=== PATIENT | female | born 1970 | race Caucasian/White ===

== ENCOUNTER 2020-03-28 11:59 | Inpatient (IN) | payer OTHER ==
--- OUTSIDE RECORDS SUMMARY | 2020-03-28 12:01 | XMS REPORT | Continuity of Care Document ---
:1970 Author Organization [facility] t Address [address] [place] [address] Care Team Providers Name Role Phone Unavailable Unavailable Unavailable Payers Payer Name Policy Type Policy Number Effective Date Expiration Date S ource Problems This patient has no known problems. Allergies, Adverse Reactions, Alerts Allergy Allergy Status Severity Reaction(s) Onset Inactive Treating Comm ents Source Name Type Date Date Clinician No Known DA Active U [facility] [place] No Known DA Active U 0 [facility] Medications This patient has no known medications. Procedures This patient has no known procedures. Results Test Description Test Time Test Comments Results Result [facility] e Comments UTERUS,OTHER THAN 2018-10-16 PROLAPSE/EVERETT 13:31:00 ----RUN DATE: 10/16/18 [facility] PAGE 1 RUN TIME: 1713 Specimen Inquiry RUN USER: INTERFACE ----PATIENT: KATT ARMSTRONG LOC: MAHIN #: [id number] AGE/SX: 47/F ROOM: [facility] RE10/09/18REG DR: Vee Campa MD : 70 BED: A DIS: 10/10/18 STATUS: DIS [place] TLOC: ---- SPEC #: [id number] RECD: 10/09/18 STATUS: MANOLO TOBI #: [id number] ANDREEA: 10/09/18- SUBM DR: Vee Campa MD ENTERED: 10/10/18 SP TYPE: UTERUSOTH [facility] DR: ORDERED: GROSS ONLY, LEVEL V SURGICA/2 CODES: [id number] - UTERUS, NOS [id number] - PELVIC GENITAL PROCEDURES: GROSS ONLY (Incomplete) LEVEL V SURGICA (Incomplete) TISSUES: UTERUS, NOS - UTERUS, CERVIX AND BILATERAL FALLOPIAN TUBES PELVIC GENITAL STRUCTURES, NOS - RIGHT PELVIC SIDEWALL INTRAUTERINE DEVICE - IUD CLINICAL HISTORY 47 year old, menometrorrhagia (kr) FINAL DIAGNOSIS Designated "intrauterine device", removal: - intrauterine device identified (gross identification only) Designated "right pelvic sidewall endometriosis", biopsy: - connective tissue with fibrosis Uterus, cervix, bilateral fallopian tubes, hysterectomy and bilateral salpingectomy: - cervix - mild chronic inflammation - endometrium - benign - myometrium - leiomyomas, adenomyosis, adenomyomas - uterine serosa - no pathologic alterations - bilateral fallopian tubes - no pathologic alterations (paratubal cysts identified on the left side) CPT code(s): 31088, 11473, 84790 pkg/wpd 10/16/18 GROSS DESCRIPTION ANATOMIC SOURCE OF TISSUE (per Requisition): 1. Intrauterine device 2. Right pelvic sidewall endometriosis 3. Uterus, cervix, bilateral fallopian tubes CONTINUED ON NEXT PAGE ----RUN DATE: 10/16/18 [facility] PAGE 2 RUN TIME: 1713 Specimen Inquiry RUN USER: INTERFACE ----SPEC #: [id number] PATIENT: KATT ARMSTRONG #[id number] (Continued) GROSS DESCRIPTION (Continued) Each specimen is labeled with the patient's name and medical record number. Specimen #1 is designated "intrauterine device" and consists of a 3.5 x 3.4 x 0.4 cm white, plastic T-shaped device, which is consistent with an intrauterine device. No sections are submitted. Gross diagnosis only. Specimen #2 is designated "right pelvic sidewall endometriosis" and consists of a 1.0 x 0.7 x 0.2 cm subramanian-yellow, cauterized, fibrofatty soft tissue. The cut surfaces display focal areas of hemorrhage, submitted in its entirety as A1. Specimen #3 is designated "uterus, cervix, bilateral fallopian tubes" and consists of a 405 gm, 11.0 x 11.0 x 9.0 cm intact uterus with an attached cervix and fimbriated fallopian tubes (right 9.5 cm in length and left 8.5 cm in length). The uterine serosa is subramanian-pink, hyperemic and nodular. The 5.2 cm ectocervix displays a central 1.2 cm slit-like os. The endometrium is subramanian-red and hemorrhagic with a thickness measuring up to 0.2 cm. The myometrium is slightly trabeculated with a wall thickness measuring up to 4.5 cm. There are multiple well-circumscribed nodules, 0.8 to 5.0 cm. The cut surfaces are subramanian and whorled. There are no areas of hemorrhage or necrosis. The fallopian tubes are pink-purple and hyperemic. The lumens are pinpoint. The cut surfaces of the right fallopian tube wall is subramanian, firm, and thickened. Section code: B1 - cervix, B2 - anterior endomyometrium, B3 - posterior endomyometrium, B4 - nodules, B5 - payroll representative sections of large nodule, B6 - additional payroll representative sections of large nodule and payroll representative sections of right fallopian tube, B7 - additional nodule and payroll representative sections of left fallopian tube. marisol/ankit 10/10/18 @ 1000 MICROSCOPIC DESCRIPTION Specimen #1 consists of an intrauterine device which is for gross identification only. Specimen #2 consists of connective tissue with fibrosis. Specimen #3 - the cervix has a mild infiltrate of small lymphocytes and plasma cells. The endometrium is composed of haphazard tubular glands with virtually no nuclear stratification or mitotic activity. Some of the glands are cystically dilated. The stroma is attenuated. The myometrium contains foci of adenomyosis, adenomyomas, and leiomyomas without atypia. The uterine serosa has focal fibrous adhesions. The bilateral fallopian tubes have intact architecture and are lined by serous epithelium without cytologic atypia. Paratubal cysts are identified on the left side. ivanna/mitchell 10/16/18 CONTINUED ON NEXT PAGE ----RUN DATE: 10/16/18 [facility] PAGE 3 RUN TIME: 2640 Specimen Inquiry RUN USER: INTERFACE ----SPEC #: [id number] PATIENT: PATTIKATT #[id number] (Continued) ---- Signed Jammie Puri 10/16/18 1331 ---- END OF REPORT HGB HCT 2018-10-10 05:43:00 Test Item Value Reference Range Interpretation Comme nts HEMOGLOBIN (test code = HGB) 12.4 g/dL 10.7-13.9 N HEMATOCRIT (test code = HCT) 36.8 % 32.1-42.1 N CHEMISTRY 7 [id number] 14:29:00 Test Item Value Reference Range Interpretation Comments SODIUM (test code = NA) 137 mEq/L 135-145 N POTASSIUM (test code = K) 4.0 mEq/L 3.5-5.0 N CHLORIDE (test code = CL) 100 mEq/L 100-115 N CARBON DIOXIDE (test code = CO2) 31 mEq/L 22-31 N ANION GAP (test code = GAP) 9.70 10-20 L GLUCOSE (test code = GLU) 91 mg/dL 65-110 N BLOOD UREA NITROGEN (test code = 9 mg/dL 7-18 N BUN) GLOMERULAR FILTRATION RATE (test 90 ml/min >60 N code = GFR) CREATININE (test code = CREAT) 0.7 mg/dL 0.5-1.0 N CALCIUM (test code = CA) 9.7 mg/dL 8.4-10.2 N AG HEPATITIS B [id number] 18:08:00 Test Item Value Reference Range Interpretation Comments AG HEPATITIS B SURFACE (test code NONREACTIVE NONREACTIVE = HBSAG) IS CONSENT FORM SIGNED FOR HIV TESTING? YAB HEPATITIS C [id number] 18:08:00 Test Item Value Reference Range Interpretation Comments AB HEPATITIS C (test code = NONREACTIVE NONREACTIVE HCVAB) SIGNAL TO CUTOFF (test code = 0.03 <0.80 N CUTOFF) IS CONSENT FORM SIGNED FOR HIV TESTING? YAB HIV 1 18:08:00 Test Item Value Reference Range Interpretation Comments AB HIV 1 2 (test NONREACTIVE NONREACTIVE Done by [facility] code = [id number]) 4th Gen HIV Ag/Ab Combo Screen IS CONSENT FORM SIGNED FOR HIV TESTING? YURINALYSIS [id number] 16:49:00 Test Item Value Reference Range Interpretation Comments UA COLOR (test code = COLU) YELLOW YELLOW UA APPEARANCE (test code = CLEAR CLEAR APPU) UA GLUCOSE DIPSTICK (test code NEGATIVE NEG = DGLUU) UA BILIRUBIN DIPSTICK (test NEGATIVE NEG code = BILU) UA KETONE DIPSTICK (test code NEGATIVE NEG = KETU) UA SPECIFIC GRAVITY (test code 1.016 1.001-1.035 N = SGU) UA BLOOD DIPSTICK (test code = 1+ NEG A CARLOS) UA PH DIPSTICK (test code = 6.0 5-9 HANNAH) UA PROTEIN DIPSTICK (test code NEGATIVE NEG = PROU) UA UROBILINIOGEN DIPSTICK NEGATIVE mg/dL NEG (test code = URO) UA NITRITE DIPSTICK (test code NEG NEG = KIERSTEN) UA LEUKOCYTE ESTERASE DIPSTICK TRACE NEG A (test code = LEUU) UA WBC (test code = WBCU) 0-2 #/hpf NONE SEEN UA RBC (test code = RBCU) 3-5 #/hpf NONE SEEN A UA EPITHELIAL CELLS (test code RARE #/HPF RARE-FEW = EPIU) UA BACTERIA (test code = BACU) NEGATIVE /HPF RARE-FEW UA MUCUS (test code = MUCU) RARE NONE SEEN URINE SAMPLE: CLEAN CATCHHCG SERUM [id number] 16:46:00 Test Item Value Reference Range Interpretation Comments HCG SERUM QUAL (test code = HCGQL) NEGATIVE CBC W/AUTO [id number] 16:26:00 Test Item Value Reference Range Interpretation Comments WHITE BLOOD CELL (test code = WBC) 7.8 K/mm3 6.6-12.1 N RED BLOOD CELL (test code = RBC) 4.76 M/mm3 3.45-5.01 N HEMOGLOBIN (test code = HGB) 14.2 g/dL 10.7-13.9 H HEMATOCRIT (test code = HCT) 41.1 % 32.1-42.1 N MEAN CELL VOLUME (test code = MCV) 86 fL 84.1-94.8 N MEAN CELL HGB (test code = MCH) 29.8 pg 27-35 N MEAN CELL HGB CONCETRATION (test 34.5 gm/dL 32.2-34.1 H code = MCHC) RED CELL DISTRIBUTION WIDTH (test 12.0 % 12.4-16.5 L code = RDW) PLATELET COUNT (test code = PLT) 313 K/mm3 133-385 N IMMATURE PLATELET FRACTION (test 0.0 % 0.0-10.8 N code = IPF) MEAN PLATELET VOLUME (test code = 10.7 fl 9.1-12.7 N MPV) NEUTROPHIL % (test code = NT%) 46.9 % 56.5-79.4 L LYMPHOCYTE % (test code = LY%) 38.9 % 14.3-34.3 H MONOCYTE % (test code = MO%) 7.9 % 5.1-10.4 N EOSINOPHIL % (test code = EO%) 5.2 % 0.1-3.0 H BASOPHIL % (test code = BA%) 0.8 % 0.1-1.0 N NEUTROPHIL # (test code = NT#) 3.7 K/mm3 LYMPHOCYTE # (test code = LY#) 3.0 K/mm3 MONOCYTE # (test code = MO#) 0.6 K/mm3 EOSINOPHIL # (test code = EO#) 0.41 K/mm3 BASOPHIL # (test code = BA#) 0.1 K/mm3 RBC MORPHOLOGY REQUIRED (test code NORMAL NORMAL = RBCM) PLATELET MORPHOLOGY REQUIRED (test NORMAL NORMAL code = PLTMR)
[2020-03-28] MEDS ORDERED: NA CHLORIDE 0.9% 500 ML ONE (12:40)
[2020-03-28] MEDS ORDERED: ONDANSETRON 4 MG/2 ML VIAL ONE (12:40)
[2020-03-28 12:49] LABS: Absolute Lymphocytes (CBC) 1.1 K/uL (0.7-4.9); Basophils % 0.5 % (0-1.3); Hematocrit 39.4 % (36.0-45.0); MPV 9.5 fL (7.6-11.3); RBC Red Blood Cell Count 4.53 M/uL (3.86-4.86)
[2020-03-28 13:01] LABS: Albumin 3.6 g/dL (3.4-5.0); Bilirubin Direct 0.3 mg/dL (0-0.2); Bilirubin Total 1.2 mg/dL (0.2-1.0); Potassium 3.6 mmol/L (3.5-5.1); Protein, Total 7.9 g/dL (6.4-8.2)
[2020-03-28 13:17] LABS: Blood Morphology Comment NOT SEEN (NOT SEEN); Platelet Estimate ADEQ; White Blood Cell Scan OK (OK)
[2020-03-28] MEDS ORDERED: DERMABOND SKIN ADHESIVE TOP ONE (13:29)
[2020-03-28] MEDS ORDERED: MEPERIDINE HCL 50 MG/ML ONE (14:27)
--- NOTE | 2020-03-28 15:05 | RAD REPORT ---
EXAM DESCRIPTION: CT - Abdomen Pelvis W Contrast - 03/28/2020 2:29 pm CLINICAL HISTORY: eval for obstruction COMPARISON: CTSTONE PROTOCOL dated 03/18/2014; CTSTONE PROTOCOL dated 10/15/2012No comparisons TECHNIQUE: Biphasic, helical CT imaging of the abdomen and pelvis was performed following 100 ml non -ionic IV contrast. Oral contrast was given. All CT scans are performed using dose optimization technique as appropriate and may include automated exposure control or mA/KV adjustment according to patient size. FINDINGS: No suspicious findings in the lung bases. The liver, spleen, and pancreas show no suspicious findings. Gallbladder and biliary tree are also wi thout suspicious finding. Liver demonstrates mild diffuse fatty infiltration. Symmetric renal function is seen with no hydronephrosis or suspicious renal mass. No pyelonephritis o r acute parenchymal process. No bladder abnormalities. No adrenal abnormalities. No stomach or small bowel abnormality. From cecum through descending colon no significant finding not ed. A 10 centimeter long segment of sigmoid colon shows circumferential wall thickening. There is str anding and edema in the adjacent fat. Several small extraluminal free air collections are present adj acent to the colon. No pneumatosis. No abscess or drainable fluid collection. No hernia, mass or bu lky lymphadenopathy. Uterus is absent. No ovarian abnormality. No suspicious bony findings. IMPRESSION: Acute sigmoid diverticulitis with contained perforation. There are several small extralu taylor air collections adjacent to the involved colon. No abscess and no distant free air.
--- NOTE | 2020-03-28 15:32 | EDPHYS ---
Physician Documentation [facility] Name: Melissa Roque Age: 49 yrs Sex: Female : 1970 Arrival Date: 03/28/2020 Time: 12:02 Bed 23 Private MD: ED Physician Cliff Thomas HPI: 03/28 12:31 This 49 yrs old Female presents to ER via Ambulatory with complaints of rn Abdominal Pain. 12:31 The patient presents with abdominal pain that is diffuse. Onset: The symptoms/episode rn began/occurred 2 day(s) ago. The symptoms do not radiate. Associated signs and symptoms: Pertinent positives: constipation, Pertinent negatives: nausea and vomiting, blood in stools, diarrhea, fever. The symptoms are described as crampy. Modifying factors: The symptoms are alleviated by nothing, the symptoms are aggravated by food. Severity of pain: At its worst the pain was moderate in the emergency department the pain is unchanged. The patient has not experienced similar symptoms in the past. 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 - Social history:: Smoking status: Patient denies any tobacco usage or history of. - Family history:: not pertinent. - Hospitalizations: : No recent hospitalization is reported. ROS: 12:31 Constitutional: Negative for fever, chills, and weight loss, Eyes: Negative for injury, rn pain, redness, and discharge, Neck: Negative for injury, pain, and swelling, Cardiovascular: Negative for chest pain, palpitations, and edema, Respiratory: Negative for shortness of breath, cough, wheezing, and pleuritic chest pain, Abdomen/GI: + abd pain and constipation, + abd bloating Back: Negative for injury and pain, : Negative for injury, bleeding, discharge, and swelling, MS/Extremity: Negative for injury and deformity, Skin: Negative for injury, rash, and discoloration, Neuro: Negative for headache, weakness, numbness, tingling, and seizure. Exam: 12:31 Constitutional: This is a well developed, well nourished patient who is awake, alert, rn appears uncomfortable Head/Face: Normocephalic, atraumatic. Cardiovascular: Regular rate and rhythm. No pulse deficits. Respiratory: No increased work of breathing, no retractions or nasal flaring. Abdomen/GI: soft, Mild tenderness in LLQ and suprapubic regions. Skin: Warm, dry MS/ Extremity: Pulses equal, no cyanosis. Neuro: Awake and alert, GCS 15 Vital Signs: 12:10 BP 121 / 82; Pulse 86; Resp 19; Temp 98.5; Pulse Ox 95% ; Weight 97.98 kg; Height 5 ft. jl7 7 in. (170.18 cm); Pain 6/10; 13:15 BP 107 / 72; Pulse 73; Resp 16; Pulse Ox 99% on R/A; zb 14:15 BP 115 / 72; Pulse 83; Resp 16; Pulse Ox 95% on R/A; zb 15:00 BP 128 / 66; Pulse 73; Resp 16; Pulse Ox 97% on R/A; zb 16:00 BP 116 / 71; Pulse 60; Resp 16; Pulse Ox 97% on R/A; zb 17:00 BP 109 / 71; Pulse 83; Resp 14; Pulse Ox 95% on R/A; zb 18:01 BP 191 / 100; Pulse 81; Resp 20; Pulse Ox 97% on R/A; dh4 19:00 BP 105 / 50; Pulse 92; Resp 20; Temp 101.5; Pulse Ox 99% on R/A; zb 20:00 Temp 99.1; zb 12:10 Body Mass Index 33.83 (97.98 kg, 170.18 cm) [facility] MDM: 12:14 Patient medically screened. rn 15:27 Differential diagnosis: bowel obstruction, diverticulitis, non-specific abd pain, rn perforation, fecal impaction. Data reviewed: vital signs, nurses notes, lab test result(s), radiologic studies, CT scan, and as a result, I will admit patient. Counseling: I had a detailed discussion with the patient and/or guardian regarding: the historical points, exam findings, and any diagnostic results supporting the discharge/admit diagnosis, lab results, radiology results, the need for further work-up and treatment in the hospital. Admission orders: after a detailed discussion of the patient's condition and case, the admit orders are written by me. ED course: Pt with contained perforation 2/2 diverticulitis, consulted Dr. Sheth, recommends admission to hospitalist service with IV abx, NPO, fluids. . 03/28 12:21 Order name: Basic Metabolic Panel; Complete Time: 13:04 rn 03/28 12:21 Order name: CBC with Diff; Complete Time: 13:59 rn 03/28 12:21 Order name: Hepatic Function; Complete Time: 13:04 rn 03/28 12:21 Order name: Lipase; Complete Time: 13:04 rn 03/28 13:17 Order name: CBC Smear Scan; Complete Time: 13:59 EDMS 03/28 15:35 Order name: COVID-19 rn 03/28 12:21 Order name: CT Abd/Pelvis - PO and IV Contrast; Complete Time: 15:13 rn 03/28 13:59 Order name: US Abdomen Limited; Complete Time: 15:48 rn 03/28 19:35 Order name: SARS-COV-2 RT PCR EDMS 03/28 22:25 Order name: Procalcitonin EDMS 03/28 12:21 Order name: IV Saline Lock; Complete Time: 12:34 rn 03/28 12:21 Order name: Labs collected and sent; Complete Time: 12:34 rn Administered Medications: 12:34 Drug: Zofran (Ondansetron) 4 mg Route: IVP; Site: right antecubital; zb 12:50 Follow up: Response: No adverse reaction zb 12:34 Drug: NS 0.9% 500 ml Route: IV; Rate: bolus; Site: right antecubital; zb 13:45 Follow up: Response: No adverse reaction; IV Status: Completed infusion; IV Intake: zb 500ml 14:15 Drug: Demerol 50 mg Route: IVP; Site: right antecubital; zb 14:20 Follow up: Response: No adverse reaction; Pain is decreased zb 15:48 Drug: Zosyn 3.375 grams Route: IVPB; Infused Over: 60 mins; Site: right antecubital; jl7 16:45 Follow up: Response: No adverse reaction; IV Status: Completed infusion; IV Intake: zb 100ml 15:59 Drug: Demerol 25 mg Route: IVP; Site: right antecubital; zb 16:10 Follow up: Response: No adverse reaction; RASS: Alert and Calm (0) zb 16:31 Follow up: Response: No adverse reaction; Pain is decreased zb 19:52 Not Given (Patient Refused): Tylenol Suppository 650 mg GA once zb Disposition: 03/28/20 15:32 Hospitalization ordered by Kd Bryant for Inpatient Admission. Preliminary diagnosis is Acute diverticulitis of large intestine with perforation, without abscess. - Bed requested for [facility] ER HOLD. - Status is Inpatient Admission. lp1 - Condition is Stable. - Problem is new. - Symptoms have improved. Signatures: Dispatcher [employer] EDMS Cliff Thomas MD MD rn Pena, Laura, RN RN lp1 Steve Cosme PA PA cp Garcia, Cindy, RN RN Deanna Gaona RN RN jl7 Melany Gold RN RN zb Corrections: (The following items were deleted from the chart) 12:36 12:31 Constitutional: This is a well developed, well nourished patient who is awake, rn alert, appears uncomfortable Head/Face: Normocephalic, atraumatic. Cardiovascular: Regular rate and rhythm. No pulse deficits. Respiratory: No increased work of breathing, no retractions or nasal flaring. Abdomen/GI: soft, Mild tenderness in LLQ and suprapubic regions. Skin: Warm, dry MS/ Extremity: Pulses equal, no cyanosis. Neuro: Awake and alert, GCS 15 rn 22:02 15:32 Hospitalization Ordered by Kd Bryant DO for Inpatient Admission. Preliminary cg diagnosis is Acute diverticulitis of large intestine with perforation, without abscess. Bed requested for Telemetry/MedSurg (Inpatient). Status is Inpatient Admission. Condition is Stable. Problem is new. Symptoms have improved. rn 03/29 02:39 03/28 22:02 03/28/2020 15:32 Hospitalization Ordered by Kd Bryant DO for Inpatient lp1 Admission. Preliminary diagnosis is Acute diverticulitis of large intestine with perforation, without abscess. Bed requested for [facility] ER HOLD. Status is Inpatient Admission. Condition is Stable. Problem is new. Symptoms have improved. cg 03/29 02:39 02:39 03/28/2020 15:32 Hospitalization Ordered by Kd Bryant DO for Inpatient lp1 Admission. Preliminary diagnosis is Acute diverticulitis of large intestine with perforation, without abscess. Bed requested for [facility] ER HOLD. Status is Inpatient Admission. Condition is Stable. Problem is new. Symptoms have improved. lp1
--- NOTE | 2020-03-28 15:32 | ER ---
Nurse's Notes [facility] Name: Melissa Roque Age: 49 yrs Sex: Female : 1970 Arrival Date: 03/28/2020 Time: 12:02 Bed 23 Private MD: Diagnosis: Acute diverticulitis of large intestine with perforation, without abscess Presentation: 03/28 12:10 Chief complaint: Patient states: Diffuse abdominal pain x 2 days, reports bloating and jl7 inability to pass gas, last BM 2 days ago. Coronavirus screen: Client denies travel out of the [place] in the last 14 days. At this time, the client does not indicate any symptoms associated with coronavirus-19. Ebola Screen: No symptoms or risks identified at this time. Initial Sepsis Screen: Does the patient meet any 2 criteria? No. Patient's initial sepsis screen is negative. Does the patient have a suspected source of infection? No. Patient's initial sepsis screen is negative. Risk Assessment: Do you want to hurt yourself or someone else? Patient reports no desire to harm self or others. Onset of symptoms was March 27, 2020. Care prior to arrival: None. 12:10 Method Of Arrival: Ambulatory jl7 12:10 Acuity: JODI 3 jl7 Triage Assessment: 12:12 General: Appears in no apparent distress. uncomfortable, Behavior is calm, cooperative, jl7 appropriate for age. Pain: Complains of pain in abdomen diffusely Pain currently is 6 out of 10 on a pain scale. GI: Reports bloating. [employer]: 12:12 LMP N/A - Hysterectomy jl7 Historical: - Allergies: 12:12 No Known Allergies; jl7 - PMHx: 12:12 Hypertension; jl7 - PSHx: 12:12 Hysterectomy; gastric sleeve; jl7 - Immunization history:: Adult Immunizations up to date. - Social history:: Smoking status: Patient denies any tobacco usage or history of. - Family history:: not pertinent. - Hospitalizations: : No recent hospitalization is reported. Screenin:15 Abuse screen: Denies threats or abuse. Denies injuries from another. Nutritional zb screening: No deficits noted. Tuberculosis screening: No symptoms or risk factors identified. Fall Risk None identified. Assessment: 12:15 General: Appears in no apparent distress. uncomfortable, Behavior is calm, cooperative, zb appropriate for age. Pain: Complains of pain in abdomen diffusely Pain does not radiate. Pain currently is 7 out of 10 on a pain scale. Quality of pain is described as heavy, pressure, Pain began 2-3 days ago. Is continuous. Neuro: Level of Consciousness is awake, alert, obeys commands, Oriented to person, place, time, situation. Cardiovascular: Denies chest pain, Heart tones S1 S2 present Capillary refill < 3 seconds in bilateral fingers Patient's skin is warm and dry. Respiratory: Airway is patent Respiratory effort is even, unlabored, Respiratory pattern is regular, symmetrical. GI: Abdomen is round non-distended, Bowel sounds present X 4 quads. Abd is soft Abdomen is tender to palpation. GI: Reports lower abdominal pain, upper abdominal pain, bloating, constipation, epigastric pain. : No signs and/or symptoms were reported regarding the genitourinary system. EENT: No signs and/or symptoms were reported regarding the EENT system. Derm: Skin is intact, is healthy with good turgor, Skin is dry, Skin is Skin temperature is warm. Musculoskeletal: Circulation, motion, and sensation intact. Capillary refill < 3 seconds, in bilateral fingers. Range of motion: intact in all extremities. 12:19 Reassessment: Reassessment: ECP at bedside assessing patient. zb 13:15 Reassessment: Patient appears in no apparent distress at this time. Patient and/or zb family updated on plan of care and expected duration. Pain level reassessed. Patient is alert, oriented x 3, equal unlabored respirations, skin warm/dry/pink. pt awating CT scan. no changes at this time. no active vomiting present. 14:15 Reassessment: Patient appears in no apparent distress at this time. Patient and/or zb family updated on plan of care and expected duration. Pain level reassessed. Patient is alert, oriented x 3, equal unlabored respirations, skin warm/dry/pink. pain increased to 10/10. patient tearful. administered pain medication. 14:30 Reassessment: pain decreased to 4/10. awaiting CT results. zb 15:23 Reassessment:. zb 15:25 Reassessment: ECP at bedside discussing POC. zb 16:32 Reassessment: Patient appears in no apparent distress at this time. Patient and/or zb family updated on plan of care and expected duration. Pain level reassessed. Patient is alert, oriented x 3, equal unlabored respirations, skin warm/dry/pink. 17:18 Reassessment: Patient appears in no apparent distress at this time. Patient and/or zb family updated on plan of care and expected duration. Pain level reassessed. Patient is alert, oriented x 3, equal unlabored respirations, skin warm/dry/pink. pt relaxed. covid swabbed. states that she is thirsty. given oral swab to help. 19:00 Reassessment: Patient appears in no apparent distress at this time. Patient and/or zb family updated on plan of care and expected duration. Pain level reassessed. Patient is alert, oriented x 3, equal unlabored respirations, skin warm/dry/pink. pt currently clammy. wrapped up in blankets. removed blankets notified ECP of temp. medication ordered. 19:16 Reassessment: Patient appears in no apparent distress at this time. Patient and/or zb family updated on plan of care and expected duration. Pain level reassessed. Patient is alert, oriented x 3, equal unlabored respirations, skin warm/dry/pink. removed blankets. 19:52 Reassessment: pt refused tylenol rechecked temp. 100.1 at this time. notified ECP. zb Vital Signs: 12:10 BP 121 / 82; Pulse 86; Resp 19; Temp 98.5; Pulse Ox 95% ; Weight 97.98 kg; Height 5 ft. jl7 7 in. (170.18 cm); Pain 6/10; 13:15 BP 107 / 72; Pulse 73; Resp 16; Pulse Ox 99% on R/A; zb 14:15 BP 115 / 72; Pulse 83; Resp 16; Pulse Ox 95% on R/A; zb 15:00 BP 128 / 66; Pulse 73; Resp 16; Pulse Ox 97% on R/A; zb 16:00 BP 116 / 71; Pulse 60; Resp 16; Pulse Ox 97% on R/A; zb 17:00 BP 109 / 71; Pulse 83; Resp 14; Pulse Ox 95% on R/A; zb 18:01 BP 191 / 100; Pulse 81; Resp 20; Pulse Ox 97% on R/A; dh4 19:00 BP 105 / 50; Pulse 92; Resp 20; Temp 101.5; Pulse Ox 99% on R/A; zb 20:00 Temp 99.1; zb 12:10 Body Mass Index 33.83 (97.98 kg, 170.18 cm) jl7 ED Course: 12:02 Patient arrived in ED. ag5 12:02 Cliff Thomas MD is Attending Physician. rn 12:08 Melany Gold RN is Primary Nurse. zb 12:11 Triage completed. jl7 12:12 Arm band placed on right wrist. jl7 12:15 Door closed. Noise minimized. zb 12:15 Inserted saline lock: 20 gauge in right antecubital area, using aseptic technique. zb 12:43 Patient has correct armband on for positive identification. Call light in reach. Side zb rails up X 1. Pulse ox on. NIBP on. 14:30 CT Abd/Pelvis - PO and IV Contrast In Process Unspecified. EDMS 14:53 US Abdomen Limited In Process Unspecified. EDMS 15:30 Kd Bryant DO is Hospitalizing Provider. rn 03/29 00:00 No provider procedures requiring assistance completed. Patient admitted, IV remains in lp1 place. Administered Medications: 03/28 12:34 Drug: Zofran (Ondansetron) 4 mg Route: IVP; Site: right antecubital; zb 12:50 Follow up: Response: No adverse reaction zb 12:34 Drug: NS 0.9% 500 ml Route: IV; Rate: bolus; Site: right antecubital; zb 13:45 Follow up: Response: No adverse reaction; IV Status: Completed infusion; IV Intake: zb 500ml 14:15 Drug: Demerol 50 mg Route: IVP; Site: right antecubital; zb 14:20 Follow up: Response: No adverse reaction; Pain is decreased zb 15:48 Drug: Zosyn 3.375 grams Route: IVPB; Infused Over: 60 mins; Site: right antecubital; jl7 16:45 Follow up: Response: No adverse reaction; IV Status: Completed infusion; IV Intake: zb 100ml 15:59 Drug: Demerol 25 mg Route: IVP; Site: right antecubital; zb 16:10 Follow up: Response: No adverse reaction; RASS: Alert and Calm (0) zb 16:31 Follow up: Response: No adverse reaction; Pain is decreased zb 19:52 Not Given (Patient Refused): Tylenol Suppository 650 mg ND once zb Intake: 13:45 IV: 500ml; Total: 500ml. zb 16:45 IV: 100ml; Total: 600ml. zb Outcome: 15:32 Decision to Hospitalize by Provider. rn 03/29 00:00 Admitted to ER Hold. Please see [facility] for further documentation. lp1 Condition: stable Instructed on the need for admit. 02:39 Patient left the ED. lp1 Signatures: Dispatcher [employer] EDMS Cliff Thomas MD MD rn Pena, Laura, RN RN lp1 Deanna Cartwright RN RN jl7 Shukri Bassett Donald [facility], [facility]–1983 Melany Gold RN RN zb Corrections: (The following items were deleted from the chart) 03/28 13:35 12:45 Reassessment: zb zb 19:52 19:16 Reassessment: Patient appears in no apparent distress at this time. Patient zb and/or family updated on plan of care and expected duration. Pain level reassessed. Patient is alert, oriented x 3, equal unlabored respirations, skin warm/dry/pink. pt appears to be sleeping at this time. zb
--- NOTE | 2020-03-28 15:37 | RAD REPORT ---
EXAM DESCRIPTION: US - Abdomen Exam Limited - 03/28/2020 2:54 pm CLINICAL HISTORY: ABD PAIN COMPARISON: No comparisons FINDINGS: No gallstones or sludge identified. There is no wall thickening or pericholecystic fluid. Small echogenic nonshadowing foci along the gallbladder wall probably small polyps. These are not reg arded as significant. No common duct stone or biliary tree dilatation identified. IMPRESSION: No significant gallbladder or biliary tree finding.
--- NOTE | 2020-03-28 15:48 | P.HP ---
Certification for Inpatient Patient admitted to: Inpatient With expected LOS: >2 Midnights Patient will require the following post-hospital care: None Practitioner: I am a practitioner with admitting privileges, knowledge of patient current condition, hospital course, and medical plan of care. Services: Services provided to patient in accordance with Admission requirements found in Title 42 Section 412.3 of the Code of Federal Regulations Patient History Date of Service: 03/28/20 Primary Care Provider: HAFSA Islas Reason for admission: Abdominal pain History of Present Illness: 49-year-old female with history of hypertension presented to the emergency room with abdominal pain. Patient 1st reported increased bloating for the past week. She had to use several over the counter medications for this. Then 2 days ago she start to have some pain to the left quadrant of the abdomen that then radiated to the periumbilical region. Pain was intense and cramping like cessation. It was associated with some nausea. Some chills noted. No fever. Symptoms worsened. She denies any chest pain, shortness of breath. She was in the process of trying to make arrangements to see GI. She came to the ER for further evaluation. In the ER patient evaluated. White count 15.1, hemoglobin within normal range. Sodium 136, potassium 3.6. BUN of 9, creatinine 0.79 with a GFR 77. Glucose 106. Abdominal ultrasound unremarkable except possible polyps to the gallbladder. CT scan showed 10 cm long segment of sigmoid colon showing circumferential wall thickening. There was stranding and edema in the adjacent fat. Several small extra lumen err free air collections also noted. No pneumatosis. No abscess or drainable fluid noted. Patient was started on IV antibiotic therapy. Patient given medication for pain Patient admitted for further evaluation and treatment. ER physician spoke to surgery for admission. Surgery requested that the hospitalist admit the patient and surgery be consulted. When I saw the patient ER, patient appeared stable. No history of diverticulitis. There is a family history of diverticulitis. Prior surgeries include hysterectomy in 2019 and gastric sleeve in 2015. Home medications list reviewed: Yes - Past Medical/Surgical History Diabetic: No -: Hypertension -: History of gastric sleeve -: Gastric sleeve -: Hysterectomy Psychosocial/ Personal History: Patient is single - Family History Mother -: Other (see notes) (Diverticulitis) - Social History Smoking Status: Former smoker Alcohol use: Yes CD- Drugs: No Caffeine use: Yes Place of Residence: Home Review of Systems General: Chills, As per HPI Eyes: Unremarkable ENT: Unremarkable Respiratory: Unremarkable Cardiovascular: Unremarkable Gastrointestinal: Nausea, Abdominal Pain, As per HPI Genitourinary: Unremarkable Musculoskeletal: Unremarkable Integumentary: Unremarkable Neurological: Unremarkable Lymphatics: Unremarkable Physical Examination - Physical Exam General: Alert, In no apparent distress, Oriented x3, Cooperative HEENT: Atraumatic, Normocephalic, PERRLA, Mucous membr. moist/pink Neck: Supple Respiratory: Clear to auscultation bilaterally, Normal air movement Cardiovascular: Normal pulses, Regular rate/rhythm Gastrointestinal: Hypoactive, No masses, No rebound, No guarding, Tenderness (Tenderness to the left lower quadrant) Musculoskeletal: No erythema, No tenderness, No warmth Integumentary: No tenderness/swelling, No erythema, No warmth, No cyanosis Neurological: Normal speech, Normal strength at 5/5 x4 extr, Normal tone, Normal affect - Studies Laboratory Data (last 24 hrs) 03/28/20 12:34: WBC 15.1 H, Hgb 13.1, Hct 39.4, Plt Count 277 03/28/20 12:34: Sodium 136, Potassium 3.6, BUN 9, Creatinine 0.79, Glucose 106, Total Bilirubin 1.2 H, AST 13 L, ALT 22, Alkaline Phosphatase 106, Lipase 84 Assessment and Plan - Plan Impression: Abdominal pain secondary to acute sigmoid diverticulitis with contained perforation without abscess Hypertension Plan: Abdominal pain secondary to acute sigmoid diverticulitis with contained perforation without abscess: Patient admitted for further evaluation and treatment. Will continue IV antibiotic therapy-Zosyn. Will provide DVT prophylaxis. Will provide IV pain medication. Will continue with IV fluids. ER discuss case with surgery. Await surgery recommendations. Anticipate keeping the patient NPO for at least 48-72 hr before initiating p.o.. If with increased pain, nausea then patient may end up requiring surgical intervention. Will continue monitor closely. Will discuss further with surgery. Hypertension: Will provide IV medication as needed Discharge Plan: Home Plan to discharge in: Greater than 2 days - Advance Directives Does patient have a Living Will: No Does patient have a Durable POA for Healthcare: No - Code Status/Comfort Care Code Status Assessed: Yes (Patient full code) Time Spent Managing Pts Care (In Minutes): 55
[2020-03-28] MEDS ORDERED: PIPER/TAZO/NS 3.375gm 3.375 GM/100 ML BAG ONE (15:59)
[2020-03-28] MEDS ORDERED: MEPERIDINE HCL 25 MG/ML SYR ONE ×2 (16:13→23:56)
[2020-03-28] MEDS ORDERED: HYDROMORPHONE HCL 1 MG/ML INJ IV ONE (19:00)
--- NOTE | 2020-03-28 19:12 | CON ---
Date of Consultation: 03/28/2020 Diagnosis: Diverticulitis with microperforation. History Of Present Illness: This is a case of a 49-year-old patient, who comes to us with at least 2 -day history of left lower quadrant tenderness, radiated to the periumbilical region. It got worse u ntil today. She decided to come to the ER, was diagnosed with diverticulitis with perforation, and a surgical consult was obtained. The pain she describes as cramping with some nausea associated with it. Review of Systems: No shortness of breath. No chest pain. No fever. No dysuria, hematuria, hematochezia, or melena. Ten points otherwise unremarkable. She denies eating anything out of the usual. Denies any family m ember sick at home. Past Medical History: History of gastric sleeve, hypertension. Past Surgical History: Include gastric sleeve, hysterectomy. Social History: She does smoke. She does drink alcohol. Family History: Noncontributory. Physical Examination: General: The patient is awake and alert. Eyes: Pupils are equal and reactive. Anicteric. Neck: Supple. Chest: Clear. Abdomen: Soft and depressible. Left lower quadrant tenderness with guarding with no rebound. Pelvic/Rectal: Deferred. Breasts: Deferred. Extremities: Good capillary refill. Laboratory Data: Blood work shows WBC count of 15.1 with sodium is 136, potassium 3.6, bilirubin 1.2 . CAT scan of the abdomen and pelvis interpreted by Dr. Shrestha as acute sigmoid diverticulitis with contained perforation. Assessment: This is a 49-year-old patient with diverticulitis and perforation. The patient understa nds the options of emergent laparotomy, possible resection, possible ostomy with benefits, alternativ es, and risks including, but not limited to infection, bleeding, damage to adjacent structures, anest hesia complication, AL, and even . She also understands the concept of diverticulitis and micro perforation, and she want to treat this conservatively with antibiotics. In that case, I will agree with that as long as clinically she does not deteriorate. So, we are going to start antibiotics, we are going to keep her n.p.o., ambulation. I will follow the patient with you and give more recommend ations as the case develops. ZACHARY/SCARLET Voice ID: [id number] Report ID: [id number]
[2020-03-28] MEDS: D5 0.9 NS 1,000 ML IV SCH (19:33)
[2020-03-28] MEDS ORDERED: HYDRALAZINE HCL 20 MG/ML VIAL IV PRN (19:33)
[2020-03-28] MEDS ORDERED: ACETAMINOPHEN 500 MG TAB PO PRN (19:33)
[2020-03-28] MEDS ORDERED: ACETAMINOPHEN 650MG/RECT SUPP PR PRN (19:33)
[2020-03-28] MEDS: PIPER/TAZO/NS 3.375gm 3.375 GM/100 ML BAG IVPB SCH (20:00)
[2020-03-28] MEDS ORDERED: HYDROMORPHONE HCL 1 MG/ML INJ ONE (20:25)
[2020-03-28] MEDS: FAMOTIDINE 20 MG/2 ML VIAL IV SCH (21:00)
[2020-03-28 22:51] VITALS: BMI 33.8
[2020-03-28] MEDS: ENOXAPARIN 40 MG/0.4 ML SQ SCH (23:31)
[2020-03-28] MEDS ORDERED: FAMOTIDINE 20 MG/2 ML VIAL IV ONE (23:49)
[2020-03-28] MEDS: MEPERIDINE HCL 25 MG/ML SYR IV PRN (23:50)
[2020-03-29] MEDS: PIPER/TAZO/NS 3.375gm 3.375 GM/100 ML BAG IVPB SCH ×3 (00:53→16:00)
[2020-03-29] MEDS ORDERED: PIPER/TAZO/NS 3.375gm 3.375 GM/100 ML BAG ONE ×3 (00:55→15:24)
[2020-03-29] MEDS: HYDROMORPHONE HCL 0.5 MG/0.5 ML INJ IV PRN ×3 (03:00→15:43)
[2020-03-29] MEDS ORDERED: HYDROMORPHONE HCL 0.5 MG/0.5 ML INJ ONE ×3 (03:15→15:58)
[2020-03-29] MEDS ORDERED: MEPERIDINE HCL 25 MG/ML SYR ONE ×2 (03:44→10:37)
[2020-03-29] MEDS: MEPERIDINE HCL 25 MG/ML SYR IV PRN ×3 (04:55→19:55)
[2020-03-29] MEDS: ONDANSETRON 4 MG/2 ML VIAL IV PRN ×2 (05:02→10:26)
[2020-03-29] MEDS: D5 0.9 NS 1,000 ML IV SCH ×2 (05:03→15:14)
[2020-03-29] MEDS ORDERED: ONDANSETRON 4 MG/2 ML VIAL ONE ×2 (05:16→10:42)
[2020-03-29] MEDS ORDERED: D5 0.9 NS 1,000 ML IV ONE ×2 (05:17→15:25)
[2020-03-29 06:29] LABS: Absolute Lymphocytes (CBC) 1.3 K/uL (0.7-4.9); Basophils % 0.2 % (0-1.3); Hematocrit 33.9 % (36.0-45.0); Lymphocytes % 10.3 % (15.3-44.8); MPV 9.5 fL (7.6-11.3); RBC Red Blood Cell Count 3.89 M/uL (3.86-4.86)
[2020-03-29 06:33] LABS: Urine Appearance TURBID; Urine Blood 2+ (NEG); Urine Color DK YELLOW; Urine Glucose NEGATIVE (NEG); Urine Protein TRACE (NEG); Urine Specific Gravity >=1.030 (1.005-1.030); Urine Urobilinogen 0.2 mg/dL (0.2-1.0); Urine pH 5.5 (5.0-7.0)
[2020-03-29 06:43] LABS: Magnesium 2.3 mg/dL (1.8-2.4); Potassium 3.5 mmol/L (3.5-5.1)
[2020-03-29] MEDS ORDERED: FAMOTIDINE 20 MG/2 ML VIAL IV ONE (07:35)
[2020-03-29] MEDS: FAMOTIDINE 20 MG/2 ML VIAL IV SCH ×2 (07:36→20:00)
[2020-03-29] MEDS ORDERED: KCL 20 MEQ/100 mL IVPB 20 MEQ/100 ML BAG IV ONE (07:36)
[2020-03-29 07:39] LABS: Urine Bilirubin NEGATIVE (NEG); Urine Microscopic Reflex ORDER UMIC
[2020-03-29 07:41] LABS: Urine Bacteria NONE SEEN /HPF (<20)
[2020-03-29] MEDS ORDERED: KCL 20 MEQ/100 mL IVPB 20 MEQ/100 ML BAG IV SCH (08:00)
--- NOTE | 2020-03-29 11:31 | PN ---
Date of Progress Note: 03/29/2020 Diagnosis: Diverticulitis with microperforation. The patient is feeling the same, not worse. No vo miting. The pain is little bit better on the left lower quadrant. She is passing flatus. No bowel movement. Review of Systems: No shortness of breath. No chest pain. No fever and aspiration. Physical Examination: General: The patient is awake, alert, comfortable. Abdomen: Soft and depressible. Left lower quadrant tenderness a little bit less than yesterday. St ill present. The Abdomen is softly distended. Extremities: Good capillary refill. Laboratory Data: Blood work shows WBC count from 15 to 12 and platelets of 203, potassium 3.5. Plan: We are going to obtain an x-ray today. Second, continue with n.p.o., bowel rest, ambulation a nd IV antibiotics. ZACHARY/SCARLET Voice ID: [id number] Report ID: [id number]
--- NOTE | 2020-03-29 11:37 | RAD REPORT ---
EXAM DESCRIPTION: RAD - Abdomen W Erect - 03/29/2020 10:45 am CLINICAL HISTORY: hx of diverticulitis with microperforation Pain COMPARISON: Abdomen Pelvis W Contrast dated 03/28/2020 FINDINGS: The bowel gas pattern is non-obstructive. Contrast is seen in the colon. No evidence of fr ee air or pneumatosis. No suspicious calcifications. No significant bony findings. IMPRESSION: No acute abnormality is detected.
--- NOTE | 2020-03-29 11:43 | P.PN ---
Subjective Date of Service: 03/29/20 Primary Care Provider: HAFSA Islas Chief Complaint: Abdominal pain Subjective: Improving (Slowly improving. Some abdominal pain but improved) Physical Examination - Vital Signs Temperature: 98.3 F Blood Pressure: 100/70 Pulse: 72 Respirations: 18 Pulse Ox (%): 97 - Physical Exam General: Alert, In no apparent distress, Oriented x3, Cooperative HEENT: Atraumatic Neck: Supple Respiratory: Clear to auscultation bilaterally, Normal air movement Cardiovascular: Normal pulses, Regular rate/rhythm Gastrointestinal: Hypoactive, No masses, No rebound, No guarding, Tenderness (Tenderness improved. Still to the left lower quadrant.) Neurological: Normal speech, Normal strength at 5/5 x4 extr, Normal tone, Normal affect - Studies Laboratory Data (last 24 hrs) 03/28/20 12:34: WBC 15.1 H, Hgb 13.1, Hct 39.4, Plt Count 277 03/28/20 12:34: Sodium 136, Potassium 3.6, BUN 9, Creatinine 0.79, Glucose 106, Total Bilirubin 1.2 H, AST 13 L, ALT 22, Alkaline Phosphatase 106, Lipase 84 Medications List Reviewed: Yes Assessment & Plan Discharge Plan: Home Plan to discharge in: 72 Hours Physician Review Additional Text: Impression: Abdominal pain secondary to acute sigmoid diverticulitis with contained perforation without abscess Hypertension Plan: Abdominal pain secondary to acute sigmoid diverticulitis with contained perforation without abscess: Patient remains NPO. X-ray of abdomen today shows no significant abnormality. Continue IV antibiotic therapy, IV pain medication, and IV fluids. Will discuss with surgery. Anticipate improvement over the next 48-72 hr. Await recommendations from surgery on when to restart oral fluid then diet. Encourage ambulation. Encourage incentive spirometer. I will turn the service over to the hospitalist team tomorrow. I will go plan of care with him. Hypertension: Will provide IV medication as needed Discharge Plan: Home Plan to discharge in: Greater than 2 days Time Spent Managing Pts Care (In Minutes): 55
[2020-03-30] MEDS: PIPER/TAZO/NS 3.375gm 3.375 GM/100 ML BAG IVPB SCH ×3 (00:13→16:00)
[2020-03-30] MEDS: HYDROMORPHONE HCL 0.5 MG/0.5 ML INJ IV PRN (00:14)
[2020-03-30] MEDS: ONDANSETRON 4 MG/2 ML VIAL IV PRN ×6 (00:14→20:10)
[2020-03-30] MEDS ORDERED: PIPER/TAZO/NS 3.375gm 3.375 GM/100 ML BAG ONE (00:18)
[2020-03-30] MEDS: D5 0.9 NS 1,000 ML IV SCH ×5 (00:59→21:33)
[2020-03-30] MEDS: MEPERIDINE HCL 25 MG/ML SYR IV PRN ×4 (03:24→20:10)
[2020-03-30 05:49] LABS: Absolute Lymphocytes (CBC) 1.1 K/uL (0.7-4.9); Basophils % 0.5 % (0-1.3); Hematocrit 31.8 % (36.0-45.0); Lymphocytes % 16.5 % (15.3-44.8); MPV 9.5 fL (7.6-11.3); RBC Red Blood Cell Count 3.65 M/uL (3.86-4.86)
[2020-03-30 06:21] LABS: Magnesium 2.3 mg/dL (1.8-2.4); Potassium 3.5 mmol/L (3.5-5.1)
[2020-03-30] MEDS: FAMOTIDINE 20 MG/2 ML VIAL IV SCH ×2 (08:54→20:09)
[2020-03-30] MEDS ORDERED: KCL 20 MEQ/100 mL IVPB 20 MEQ/100 ML BAG IV SCH (09:00)
[2020-03-30] MEDS: ENOXAPARIN 40 MG/0.4 ML SQ SCH (11:20)
--- NOTE | 2020-03-30 14:22 | PN ---
Date of Progress Note: 03/30/2020 Diagnosis: Perforated sigmoid diverticulitis. Subjective: This is the case of a 49-year-old patient with above diagnosis, improving, treated with conservative treatment, bowel rest and antibiotics. The patient has improved today. She has a bowel movement. No fever. Review of Systems: No shortness of breath. No chest pain. No fever. Ten points otherwise unremarkable. Physical Examination: Chest: Clear. Abdomen: Soft and depressible. No guarding or rebound, although she still has some mild left lower quadrant tenderness, minimal right now. Extremities: Good capillary refill. Laboratory Data: Previous x-rays reviewed. Blood work reviewed. Plan: We are going to start today with clear liquid. Continue antibiotics. Continue ambulation. Margie fernández will advance until we know clinically how she tolerates this liquid diet. If she develops any naus ea, vomiting or abdominal pain, we are going to put her n.p.o. once again. NIYA Voice ID: [id number] Report ID: [id number]
[2020-03-30] MEDS: dexAMETHasone 4 MG/ML VIAL IV ONE ×2 (17:55→18:00)
[2020-03-30 19:24] LABS: Albumin 2.8 g/dL (3.4-5.0); Bilirubin Direct 0.2 mg/dL (0-0.2); Bilirubin Total 0.5 mg/dL (0.2-1.0); Protein, Total 6.9 g/dL (6.4-8.2)
[2020-03-31] MEDS: PIPER/TAZO/NS 3.375gm 3.375 GM/100 ML BAG IVPB SCH ×3 (00:55→16:55)
[2020-03-31] MEDS: MEPERIDINE HCL 25 MG/ML SYR IV PRN ×4 (00:57→20:54)
[2020-03-31] MEDS: ONDANSETRON 4 MG/2 ML VIAL IV PRN ×4 (01:07→20:54)
[2020-03-31 05:49] LABS: Absolute Lymphocytes (CBC) 1.3 K/uL (0.7-4.9); Basophils % 0.4 % (0-1.3); Lymphocytes % 19.6 % (15.3-44.8); MPV 9.8 fL (7.6-11.3); RBC Red Blood Cell Count 3.48 M/uL (3.86-4.86)
[2020-03-31 06:05] LABS: BUN Blood Urea Nitrogen 5 mg/dL (7-18); Bicarbonate 26 mmol/L (21-32); Glucose Level 110 mg/dL (74-106); Magnesium 2.1 mg/dL (1.8-2.4); Potassium 3.4 mmol/L (3.5-5.1); Sodium Level 140 mmol/L (136-145)
[2020-03-31] MEDS: D5 0.9 NS 1,000 ML IV SCH ×2 (07:33→17:33)
[2020-03-31] MEDS: FAMOTIDINE 20 MG/2 ML VIAL IV SCH ×2 (09:00→20:54)
[2020-03-31] MEDS ORDERED: POTASSIUM 25 MEQ EFFERV TAB PO ONE (09:00)
--- NOTE | 2020-03-31 09:37 | P.PN ---
Subjective Date of Service: 03/30/20 PATIENT STILL HAVING SOME MILD ABDOMINAL PAIN. PATIENT ALSO COMPLAINING OF SINUS PRESSURE. SHE WOULD NOT TAKE DECADRON. HE STATES ONLY SUDAFED HELPS HER. CANNOT GIVE HER ANYTHING ORALLY. SHE DOES ALONG THE USE BENADRYL EITHER. CONTINUE HER PAIN MEDICATION ORDERED. Review of Systems 10-point ROS is otherwise unremarkable Physical Examination - Vital Signs Temperature: 97.9 F Blood Pressure: 114/68 Pulse: 67 Respirations: 18 Pulse Ox (%): 97 - Physical Exam General: Alert, In no apparent distress, Oriented x3 HEENT: Atraumatic, PERRLA, EOMI Neck: Supple, JVD not distended Respiratory: Clear to auscultation bilaterally, Normal air movement Cardiovascular: Regular rate/rhythm, Normal S1 S2 Gastrointestinal: Normal bowel sounds, No tenderness Musculoskeletal: No tenderness Integumentary: No rashes Neurological: Normal speech, Normal tone, Normal affect Lymphatics: No axilla or inguinal lymphadenopathy - Studies Medications List Reviewed: Yes Assessment & Plan - Problems (Diagnosis) (1) Perforated abdominal viscus Current Visit: Yes Status: Acute (2) Sinus headache Current Visit: Yes Status: Acute - Advance Directives Does patient have a Living Will: No Does patient have a Durable POA for Healthcare: No
[2020-03-31] MEDS: ENOXAPARIN 40 MG/0.4 ML SQ SCH (10:03)
--- NOTE | 2020-03-31 21:15 | PN ---
Date of Progress Note: 03/31/2020 Diagnosis: Perforated diverticulitis contained. Subjective: This is a case of a 49-year-old patient, who comes to us with a diverticulitis with micr operforation. No free air. The patient is improving. Review of Systems: No chest pain. No shortness of breath. No fever. Abdomen feels softer. Passing flatus. Physical Examination: Chest: Clear. Abdomen: Soft and depressible. Mild generalized tenderness. A lot less pain in the left side with no guarding or rebound today. Extremities: Good capillary refill. Laboratory Data: The blood work reviewed. Plan: We are going to continue advancing diet slowly since she is improving clinically. Ambulation. Continue antibiotics. HM/MODL Voice ID: [id number] Report ID: [id number]
[2020-04-01] MEDS: PIPER/TAZO/NS 3.375gm 3.375 GM/100 ML BAG IVPB SCH ×3 (00:42→18:07)
[2020-04-01] MEDS: ONDANSETRON 4 MG/2 ML VIAL IV PRN ×4 (01:45→22:13)
[2020-04-01] MEDS: MEPERIDINE HCL 25 MG/ML SYR IV PRN ×5 (01:45→22:14)
[2020-04-01] MEDS: D5 0.9 NS 1,000 ML IV SCH ×3 (01:45→15:54)
[2020-04-01] MEDS ORDERED: LORazepam 2 MG/ML VIAL IV ONE (06:14)
[2020-04-01 06:37] LABS: Potassium 3.7 mmol/L (3.5-5.1)
--- NOTE | 2020-04-01 09:22 | RAD REPORT ---
EXAM DESCRIPTION: CT - Head Brain Wo Cont - 04/01/2020 8:33 am CLINICAL HISTORY: Headache Headache, drowsiness COMPARISON: Sinus Wo Cont dated 04/01/2020 TECHNIQUE: All CT scans are performed using dose optimization technique as appropriate and may inclu de automated exposure control or mA/KV adjustment according to patient size. FINDINGS: No intracranial hemorrhage, hydrocephalus or extra-axial fluid collection.No areas of brai n edema or evidence of midline shift. Mild mucosal thickening is seen involving the inferior maxillary antra. The paranasal sinuses and mas toids otherwise clear. The calvarium is intact. IMPRESSION: No acute or aggressive intracranial abnormality.
--- NOTE | 2020-04-01 09:31 | RAD REPORT ---
EXAM DESCRIPTION: CT - Sinus Wo Cont - 04/01/2020 8:33 am CLINICAL HISTORY: Headache Headache, drowsiness COMPARISON: No comparisons TECHNIQUE: Axial 3 mm thick images of the paranasal sinuses were obtained. Coronal and sagittal refo rmatted images were reviewed. All CT scans are performed using dose optimization technique as appropriate and may include automated exposure control or mA/KV adjustment according to patient size. FINDINGS: Mild polypoid mucosal thickening involves both inferior maxillary antra, slightly greater on the left. Mild mucosal thickening of the right sphenoid sinus is also present. The paranasal sinus es and mastoids are otherwise clear. The ostiomeatal units are patent. The frontal recesses are patent. No significant skull-base finding. IMPRESSION: Mild paranasal sinus mucosal thickening.
--- NOTE | 2020-04-01 09:39 | RAD REPORT ---
EXAM DESCRIPTION: CTAbdomen Pelvis W Contrast - 04/01/2020 8:33 am CLINICAL HISTORY: Abdominal pain. perfrorated diverticulum-reassess COMPARISON: Abdomen Pelvis W Contrast dated 03/28/2020; Abdomen Exam Limited dated 03/28/2020 TECHNIQUE: Biphasic CT imaging of the abdomen and pelvis was performed with 100 ml non-ionic IV cont rast. All CT scans are performed using dose optimization technique as appropriate and may include automated exposure control or mA/KV adjustment according to patient size. FINDINGS: Trace pleural fluid, greater on the right.Postsurgical changes about the stomach. The liver, spleen, pancreas, adrenal glands and kidneys are within normal limits. Gallbladder appears distended. No bowel obstruction, free air, free fluid or abscess. The appendix is normal. Mild improvement is s een in the inflammation surrounding short segment of the sigmoid colon in the inferior pelvis. No renetta dence of significant lymphadenopathy. No suspicious bony findings. IMPRESSION: Mild improvement is seen in the patient's known sigmoid diverticulitis. No significant o r drainable abscess is present.
[2020-04-01] MEDS: ENOXAPARIN 40 MG/0.4 ML SQ SCH (09:58)
[2020-04-01] MEDS: FAMOTIDINE 20 MG/2 ML VIAL IV SCH ×2 (09:58→20:05)
--- NOTE | 2020-04-01 10:02 | P.PN ---
Subjective Date of Service: 03/31/20 Clinically, patient continues to improve. Abdominal pain is better. Having some sinus pain which is relieved with her Sudafed. Otherwise, no new complaints. Review of Systems 10-point ROS is otherwise unremarkable Physical Examination - Vital Signs Temperature: 97.6 F Blood Pressure: 134/80 Pulse: 65 Respirations: 20 Pulse Ox (%): 97 - Physical Exam General: Alert, In no apparent distress, Oriented x3 Respiratory: Clear to auscultation bilaterally, Normal air movement Cardiovascular: Regular rate/rhythm, Normal S1 S2, No murmurs Gastrointestinal: Normal bowel sounds, Soft and benign, Non-distended, No tenderness Musculoskeletal: No clubbing, No swelling, No tenderness Integumentary: No rashes Neurological: Normal speech, Normal tone, Normal affect Lymphatics: No axilla or inguinal lymphadenopathy - Studies Medications List Reviewed: Yes Assessment & Plan - Problems (Diagnosis) (1) Perforated abdominal viscus Current Visit: Yes Status: Acute (2) Sinus headache Current Visit: Yes Status: Acute - Plan 1. Continue with IV hydration 2. Continue with IV antibiotics 3. Continue with pain control 4. NPO 5. General surgery consultation; outpatient colonoscopy in 12 weeks 6. Serial H&H, and we will monitor CBC, BMP, LFTs and lipase along with e lectrolytes. 7. Repeat CT imaging 8. GI and DVT prophylaxis - Advance Directives Does patient have a Living Will: No Does patient have a Durable POA for Healthcare: No
[2020-04-01] MEDS: METHYLPREDNISOLONE 125 MG INJ IV SCH ×2 (12:19→17:16)
--- NOTE | 2020-04-01 13:11 | P.CNS ---
Date of Consult: 04/01/[address] images personally reviewed with very minimal findings, centred around the tooth roots. No obstruction of maxillary or frontal sinus outflow and no opacification of the ethmoid sinuses. No current radiographic evidence of significant sinus disease. Patient is appropriate for out-patient ENT consultation and can call for an appointment once she is discharged from the hospital. If she is having significant facial pain or headache, she would be better served with out-patient neurologist evaluation since CT findings to not suggest a sinus cause of pain/headache. I spoke with Dr Blue regarding this assessment.
[2020-04-01] MEDS: Levofloxacin500mg IV 500 MG/100 ML BAG IV SCH (14:15)
[2020-04-01] MEDS: clonazePAM 0.5 MG TAB PO SCH ×3 (17:16→21:32)
[2020-04-02] MEDS: PIPER/TAZO/NS 3.375gm 3.375 GM/100 ML BAG IVPB SCH ×3 (00:16→17:19)
[2020-04-02] MEDS: METHYLPREDNISOLONE 125 MG INJ IV SCH ×4 (00:16→17:18)
[2020-04-02] MEDS: D5 0.9 NS 1,000 ML IV SCH ×3 (01:48→16:06)
[2020-04-02] MEDS: ONDANSETRON 4 MG/2 ML VIAL IV PRN ×4 (03:56→22:14)
[2020-04-02] MEDS: MEPERIDINE HCL 25 MG/ML SYR IV PRN ×4 (03:56→22:13)
[2020-04-02 06:11] LABS: BUN Blood Urea Nitrogen 4 mg/dL (7-18); Bicarbonate 25 mmol/L (21-32); Glucose Level 153 mg/dL (74-106); Potassium 3.9 mmol/L (3.5-5.1); Sodium Level 139 mmol/L (136-145)
[2020-04-02] MEDS: BISOPROLOL/HCTZ 5/6.25MG TAB PO SCH (09:04)
[2020-04-02] MEDS: clonazePAM 0.5 MG TAB PO SCH ×3 (09:04→21:14)
[2020-04-02] MEDS: FAMOTIDINE 20 MG/2 ML VIAL IV SCH ×2 (09:05→21:14)
[2020-04-02] MEDS: ENOXAPARIN 40 MG/0.4 ML SQ SCH (09:05)
--- NOTE | 2020-04-02 09:53 | P.PN ---
Subjective Date of Service: 04/01/20 Patient was in tears crying about her sinus headache. She say she normally takes Sudafed which she has done but this did not relieve her. I told her her CT scan did not reveal any significant pathology. She was adamant that we consult ENT physician. Do not feel that that is needed at this time but per her request will go ahead and do it. I spoke with ENT physician who Consulted on the phone. They reviewed CT imaging findings. There was no cause of sinus pain on review of sinus CT scan. Patient's pain is at a proportion to her clinical symptoms. She is not eating. She says she feels like vomiting whenever she eats. This could be related to her pain medication. May need just discontinue the pain medicine she is currently on if nausea persistent. Review of Systems 10-point ROS is otherwise unremarkable Physical Examination - Vital Signs Temperature: 97.3 F Blood Pressure: 131/77 Pulse: 56 Respirations: 20 Pulse Ox (%): 96 - Physical Exam General: Alert, In no apparent distress, Oriented x3 Respiratory: Clear to auscultation bilaterally, Normal air movement Cardiovascular: Regular rate/rhythm, Normal S1 S2, No murmurs Gastrointestinal: Normal bowel sounds, Soft and benign, Non-distended, No tenderness Musculoskeletal: No clubbing, No swelling, No tenderness Neurological: Sensation intact, Cranial nerves 3-12 intact - Studies Medications List Reviewed: Yes Assessment & Plan - Problems (Diagnosis) (1) Perforated abdominal viscus Current Visit: Yes Status: Acute (2) Sinus headache Current Visit: Yes Status: Acute - Plan 1. Continue with IV hydration 2. Continue with IV antibiotics 3. Continue with pain control 4. Advanced diet as tolerated 5. General surgery consultation appreciated; outpatient colonoscopy in 12 weeks 6. Serial H&H, and we will monitor CBC, BMP, LFTs and lipase along with electrolytes. 7. Repeat CT imaging with improvement of diverticulitis. Questionable mild sinusitis. Appreciate ENT consultation by phone 8. GI and DVT prophylaxis Discharge Plan: Home Plan to discharge in: Greater than 2 days - Advance Directives Does patient have a Living Will: No Does patient have a Durable POA for Healthcare: No - Code Status/Comfort Care Code Status Assessed: Yes Code Status: Full Code Critical Care: No Time Spent Managing PTS Care (In Minutes): 35
[2020-04-02] MEDS: Levofloxacin500mg IV 500 MG/100 ML BAG IV SCH (12:01)
--- NOTE | 2020-04-02 17:39 | PN ---
Reason For Service: Perforated contained diverticulitis. Subjective: The patient is doing better. Yesterday, she had some headaches and they have to do some workup with ENT. Today, she feels a lot better. She is still not there yet. She tolerated clear l iquid diet. Full liquid diet was starting today. Her stoma rumbling and getting distended, but the pain is better. No fever. No shortness of breath. No chest pain. Review of Systems: Ten points otherwise unremarkable. Objective: General: The patient is awake, alert, no distress. Abdomen: Soft and depressible. No guarding or rebound. Mild left lower quadrant tenderness, a lot better than before. Extremities: No calf tenderness. Laboratory Data: Previous blood work reviewed with the patient. Plan: We will advance the diet slowly. We are going to keep her on a full liquid diet since she has not tolerated this one yet. Tomorrow, we might add advance diet to leave it more. By Monday, she should complete 7 days of IV antibiotics for that perforation she has in the sigmoid colon and if cl inically she improves, then we might consider send her home on another week of p.o. antibiotics. If she gets worse, then she will stay with us longer and then we put her back in bowel rest. She unders tands also the options for elective surgical intervention once this infection resolves. ZACHARY/SCARLET Voice ID: [id number] Report ID: [id number]
[2020-04-03] MEDS: METHYLPREDNISOLONE 125 MG INJ IV SCH ×3 (00:30→12:00)
[2020-04-03] MEDS: PIPER/TAZO/NS 3.375gm 3.375 GM/100 ML BAG IVPB SCH ×3 (00:31→16:27)
[2020-04-03] MEDS: D5 0.9 NS 1,000 ML IV SCH (03:37)
[2020-04-03] MEDS: ENOXAPARIN 40 MG/0.4 ML SQ SCH (09:50)
[2020-04-03] MEDS: clonazePAM 0.5 MG TAB PO SCH ×3 (09:53→20:27)
[2020-04-03] MEDS: FAMOTIDINE 20 MG/2 ML VIAL IV SCH ×2 (09:53→20:27)
[2020-04-03] MEDS: BISOPROLOL/HCTZ 5/6.25MG TAB PO SCH (09:54)
--- NOTE | 2020-04-03 13:32 | P.PN ---
Subjective Date of Service: 04/02/20 Clinically, patient is doing well today. She states the steroids have helped her quite a bit. Her sinuses are much improved. Her abdominal pain is also doing well. She is tolerating her diet. She is on a full liquid diet and we are advancing as tolerated. She is stable from medical point of view for d ischarge. Surgery wants to monitor her an additional 48 hrs so they can complete a full week of IV antibiotics prior to discharging her home. Review of Systems 10-point ROS is otherwise unremarkable Physical Examination - Vital Signs Temperature: 98.7 F Blood Pressure: 119/68 Pulse: 58 Respirations: 16 Pulse Ox (%): 96 - Physical Exam General: Alert, In no apparent distress, Oriented x3 Respiratory: Clear to auscultation bilaterally, Normal air movement Cardiovascular: Regular rate/rhythm, Normal S1 S2, No murmurs Gastrointestinal: Normal bowel sounds, Soft and benign, Non-distended, No tenderness Musculoskeletal: No clubbing, No swelling, No tenderness Neurological: Sensation intact, Cranial nerves 3-12 intact - Studies Medications List Reviewed: Yes Assessment & Plan - Problems (Diagnosis) (1) Perforated abdominal viscus Current Visit: Yes Status: Acute (2) Sinus headache Current Visit: Yes Status: Acute - Plan Continue with plan of care: 1. Continue with IV hydration 2. Continue with IV antibiotics; Dr. Sheth states that she needed 7 days of IV antibiotics and he is okay with her going home in the morning 3. Continue with pain control 4. She is started on a soft diet in the morning 5. General surgery consultation appreciated; outpatient colonoscopy in 12 weeks 6. GI and DVT prophylaxis Discharge Plan: Home Plan to discharge in: 48 Hours - Advance Directives Does patient have a Living Will: No Does patient have a Durable POA for Healthcare: No - Code Status/Comfort Care Code Status: Full Code Critical Care: No Time Spent Managing PTS Care (In Minutes): 35
[2020-04-03] MEDS: Levofloxacin500mg IV 500 MG/100 ML BAG IV SCH (14:16)
--- NOTE | 2020-04-03 16:34 | P.PN ---
Date of Service: 04/03/20 Subjective Clinically, improved. Her abdominal pain is also doing well. She is tolerating her diet. She is stable from medical point of view for discharge. Surgery wants to monitor her an additional 24 hrs so they can complete a full week of IV antibiotics prior to discharging her home. Review of Systems 10-point ROS is otherwise unremarkable Physical Examination - Vital Signs reviewed - Physical Exam General: Alert, In no apparent distress, Oriented x3 Respiratory: Clear to auscultation bilaterally, Normal air movement Cardiovascular: Regular rate/rhythm, Normal S1 S2, No murmurs Gastrointestinal: Normal bowel sounds, Soft and benign, Non-distended, No tenderness Musculoskeletal: No clubbing, No swelling, No tenderness Neurological: Sensation intact, Cranial nerves 3-12 intact Assessment & Plan - Problems (Diagnosis) (1) Perforated abdominal viscus Current Visit: Yes Status: Acute (2) Sinus headache Current Visit: Yes Status: Acute - Plan Continue with plan of care: 1. Continue with IV hydration 2. Continue with IV antibiotics; Dr. Sheth states that she needed 7 days of IV antibiotics and he is okay with her going home in the morning 3. Continue with pain control 4. She is started on a soft diet in the morning 5. General surgery consultation appreciated; outpatient colonoscopy in 12 weeks 6. GI and DVT prophylaxis Discharge Plan: Home Plan to discharge in: 48 Hours - Advance Directives Does patient have a Living Will: No Does patient have a Durable POA for Healthcare: No - Code Status/Comfort Care Code Status: Full Code Critical Care: No Time Spent Managing PTS Care (In Minutes): 35
[2020-04-03] MEDS ORDERED: D5 0.9 NS 1,000 ML IV SCH (17:00)
[2020-04-03] MEDS: predniSONE 20 MG TAB PO SCH ×2 (18:26→20:32)
[2020-04-03 18:29] VITALS: O2SAT 96
[2020-04-04] MEDS: PIPER/TAZO/NS 3.375gm 3.375 GM/100 ML BAG IVPB SCH ×3 (00:30→17:10)
[2020-04-04] MEDS ORDERED: MEPERIDINE HCL 25 MG/ML SYR IV ONE ×3 (03:37→08:33)
[2020-04-04 05:55] LABS: Magnesium 2.3 mg/dL (1.8-2.4); Phosphorus 3.4 mg/dL (2.5-4.9); Potassium 3.7 mmol/L (3.5-5.1)
[2020-04-04] MEDS: clonazePAM 0.5 MG TAB PO SCH ×3 (08:39→20:05)
[2020-04-04] MEDS: predniSONE 20 MG TAB PO SCH (08:40)
[2020-04-04] MEDS: FAMOTIDINE 20 MG/2 ML VIAL IV SCH ×2 (08:40→20:05)
[2020-04-04] MEDS: ENOXAPARIN 40 MG/0.4 ML SQ SCH (08:44)
[2020-04-04] MEDS: BISOPROLOL/HCTZ 5/6.25MG TAB PO SCH ×2 (08:46→10:11)
[2020-04-04] MEDS ORDERED: MEPERIDINE HCL 25 MG/ML SYR ONE (08:50)
[2020-04-04] MEDS ORDERED: POTASSIUM CL SA 10 MEQ TAB PO ONE (09:00)
--- NOTE | 2020-04-04 09:36 | RAD REPORT ---
EXAM DESCRIPTION: CTAbdomen Pelvis W Contrast - 04/04/2020 9:14 am CLINICAL HISTORY: Abdominal pain. abdominal pain COMPARISON: Abdomen Pelvis W Contrast dated 04/01/2020; Abdomen Pelvis W Contrast dated 03/28/2020 TECHNIQUE: Biphasic CT imaging of the abdomen and pelvis was performed with 100 ml non-ionic IV cont rast. All CT scans are performed using dose optimization technique as appropriate and may include automated exposure control or mA/KV adjustment according to patient size. FINDINGS: Trace bilateral pleural effusions.Postsurgical changes are present about the stomach. The liver, spleen, pancreas, adrenal glands and kidneys are within normal limits. Mild inflammation continues to be noted about the sigmoid colon in pelvis compatible with acute diver ticulitis. Mild inflammatory changes in the pelvic fat is present appears slightly greater than on th e prior study. Small amount of extraluminal air remains present in the adjacent pelvic fat to the sig moid colon, slightly increased since the prior exam. Extraluminal air is seen spanning the sigmoid co tad and the vaginal cuff. No bowel obstruction or drainable abscess seen. No evidence of significant lymphadenopathy. No suspicious bony findings. IMPRESSION: Mild worsening in the pelvic inflammatory changes and small volume of extraluminal air a djacent to the sigmoid colon seen since 04/01/2020. 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 Followup col onoscopy after appropriate therapy would be suggested.
--- NOTE | 2020-04-04 12:02 | PN ---
Date of Progress Note: 04/04/2020 Diagnosis: Diverticulitis with microperforation. Subjective: This is a case of a 49-year-old patient comes with that diagnosis. She has been 7 days on antibiotics, improving. Pain almost completely gone and no fever. WBC count came down to normal. She is on the trial of diet, but today after completing 7 days, she did not tolerate that diet. Pa in started once again. Patient was placed n.p.o. CAT scan was repeated once again. Review of Systems: The patient denies any shortness of breath, any chest pain, but the pain in the left lower quadrant i s mainly in the area near the pelvis came back once again, although it is better right now. Last nig ht, it was more than the last 7 days. Physical Examination: Chest: Clear. Abdomen: Soft and depressible. Left lower quadrant mild tenderness. No guarding or rebound. Extremities: Good capillary refill. Laboratory Data: Blood work is still pending. Plan: Discussed the case with the primary doctor. It has been 7 days and still have swelling, when I reviewed the CAT scan today, on the area of the sigmoid and pelvic area. So, we recommend the [place] ent to be transferred to a colorectal unit, and unfortunately, this may have to be done in [place]. She understands the options of emergent laparotomy, possible resection, possible ostomy, although obv iously she want to see if there is any other alternative. In this institution, I believe, we have re ached our limit on trying to provide more service since we do not have a colorectal service in this [facility]. As an emergency, which she understand, the options above she does not want to use that at this time, I understand why. At the same time, she will continue the antibiotics. We are going to put he r in bowel rest once again, and then get plans ahead. We are going to call Infectious Disease doctor to make sure she is on the antibiotics. I also questioned the use of a steroids in this patient at this moment, and even though it is not my orders, I asked them to re-evaluate to see if it is needed or not. If it is needed, we will just deal with that. If it is not needed and may be discontinued w ith the presence of an inflammatory process or abscess in that region. The patient feels better righ t now. She has no peritonitis, but once again, she may need either surgical intervention, or if not, long-term antibiotics and we are going to trying to get Colorectal and Infectious Disease to help us in that decision. ZACHARY/SCARLET Voice ID: [id number] Report ID: [id number]
[2020-04-04] MEDS: Levofloxacin500mg IV 500 MG/100 ML BAG IV SCH (13:22)
[2020-04-04] MEDS: MEPERIDINE HCL 25 MG/ML SYR IV PRN (15:02)
[2020-04-04] MEDS: NA CHLORIDE 0.9% 1,000 ML IV SCH (18:22)
[2020-04-04] MEDS: MEPERIDINE HCL 50 MG/ML IV PRN (20:05)
[2020-04-04] MEDS: ONDANSETRON 4 MG/2 ML VIAL IV PRN (20:12)
[2020-04-04] MEDS: HYDROMORPHONE HCL 0.5 MG/0.5 ML INJ IV PRN (23:14)
[2020-04-05] MEDS: PIPER/TAZO/NS 3.375gm 3.375 GM/100 ML BAG IVPB SCH ×2 (01:09→09:00)
[2020-04-05] MEDS: MEPERIDINE HCL 50 MG/ML IV PRN ×2 (02:29→08:04)
[2020-04-05] MEDS: HYDROMORPHONE HCL 0.5 MG/0.5 ML INJ IV PRN ×2 (05:46→10:57)
[2020-04-05] MEDS: FAMOTIDINE 20 MG/2 ML VIAL IV SCH (08:04)
[2020-04-05] MEDS: ENOXAPARIN 40 MG/0.4 ML SQ SCH (08:04)
[2020-04-05] MEDS: BISOPROLOL/HCTZ 5/6.25MG TAB PO SCH (08:05)
[2020-04-05] MEDS: clonazePAM 0.5 MG TAB PO SCH (08:11)
[2020-04-05] MEDS ORDERED: KCL 20 MEQ/100 mL IVPB 20 MEQ/100 ML BAG IV SCH (09:00)
[2020-04-05] MEDS: NA CHLORIDE 0.9% 1,000 ML IV SCH (11:03)
[2020-04-05 13:52] VITALS: BP 113/65; TEMP 98.6
--- NOTE | 2020-04-08 03:12 | P.PN ---
Date of Service: 04/04/20 Subjective Plan was to discharge home today but she started hurting again. CT scan shows inflammatory changes once again. General surgery is recommending transfer to colorectal surgery. We will go ahead and initiate transfer at this time. Review of Systems 10-point ROS is otherwise unremarkable Physical Examination - Vital Signs reviewed - Physical Exam General: Alert, In no apparent distress, Oriented x3 Respiratory: Clear to auscultation bilaterally, Normal air movement Cardiovascular: Regular rate/rhythm, Normal S1 S2, No murmurs Gastrointestinal: Normal bowel sounds, Soft and benign, Non-distended, No tenderness Musculoskeletal: No clubbing, No swelling, No tenderness Neurological: Sensation intact, Cranial nerves 3-12 intact Assessment & Plan - Problems (Diagnosis) (1) Perforated abdominal viscus Current Visit: Yes Status: Acute (2) Sinus headache Current Visit: Yes Status: Acute - Plan Continue with plan of care: 1. Continue with IV hydration 2. Continue with IV antibiotics; we will initiate transfer at this time. 3. Continue with pain control 4. She is started on a soft diet in the morning 5. General surgery consultation appreciated; 6. GI and DVT prophylaxis Discharge Plan: Home Plan to discharge in: 48 Hours - Advance Directives Does patient have a Living Will: No Does patient have a Durable POA for Healthcare: No - Code Status/Comfort Care Code Status: Full Code Critical Care: No Time Spent Managing PTS Care (In Minutes): 35
--- NOTE | 2020-04-08 03:14 | P.DS ---
Discharge Date: 04/05/20 Primary Care Provider: HAFSA Islas Disposition: TRANSFER TO GENERAL HOSPITAL Discharge Condition: GOOD Reason for Admission: Abdominal pain - Problems (1) Perforated abdominal viscus Status: Acute (2) Sinus headache Status: Acute Brief History of Present Illness: Patient is a 49-year-old female with history of hypertension presented to the emergency room with abdominal pain. Patient 1st reported increased bloating for the past week. She had to use several over the counter medications for this. Then 2 days ago she start to have some pain to the left quadrant of the abdomen that then radiated to the periumbilical region. Pain was intense and cramping like cessation. It was associated with some nausea. Some chills noted. No fever. Symptoms worsened. She denies any chest pain, shortness of breath. She was in the process of trying to make arrangements to see GI. She came to the ER for further evaluation. In the ER patient evaluated. White count 15.1, hemoglobin within normal range. Sodium 136, potassium 3.6. BUN of 9, creatinine 0.79 with a GFR 77. Glucose 106. Abdominal ultrasound unremarkable except possible polyps to the gallbladder. CT scan showed 10 cm long segment of sigmoid colon showing circumferential wall thickening. There was stranding and edema in the adjacent fat. Several small extra lumen err free air collections also noted. No pneumatosis. No abscess or drainable fluid noted. Patient was started on IV antibiotic therapy. Patient given medication for pain Patient admitted for further evaluation and treatment. ER physician spoke to surgery for admission. Surgery requested that the hospitalist admit the patient and surgery be consulted. When I saw the patient ER, patient appeared stable. No history of diverticulitis. There is a family history of diverticulitis. Prior surgeries include hysterectomy in 2019 and gastric sleeve in 2015. Hospital Course: Patient is having pain out of proportion to her symptoms. Patient is still having quite a bit of pain. At this time patient will be transferred. Spoke with colorectal surgeon, Dr. Alejandro, and we will transfer patient to the [facility] in [facility]. Vital Signs/Physical Exam: Temp Pulse Resp BP Pulse Ox 98.6 F 62 16 113/65 93 04/05/20 12:00 04/05/20 12:00 04/05/20 12:00 04/05/20 12:00 04/05/20 12:00 General: Alert, In no apparent distress Laboratory Data at Discharge: WBC 6.6 K/uL (4.3-10.9) 03/31/20 05:07 Hgb 10.3 g/dL (12.0-15.0) L 03/31/20 05:07 Hct 30.0 % (36.0-45.0) L 03/31/20 05:07 Plt Count 200 K/uL (152-406) 03/31/20 05:07 Sodium 142 mmol/L (136-145) 04/04/20 05:21 Potassium 3.7 mmol/L (3.5-5.1) 04/04/20 05:21 BUN 10 mg/dL (7-18) 04/04/20 05:21 Creatinine 0.78 mg/dL (0.55-1.3) 04/04/20 05:21 Glucose 103 mg/dL (74-106) 04/04/20 05:21 Phosphorus 3.4 mg/dL (2.5-4.9) 04/04/20 05:21 Magnesium 2.3 mg/dL (1.8-2.4) 04/04/20 05:21 Total Bilirubin 0.5 mg/dL (0.2-1.0) 03/30/20 18:32 AST 12 U/L (15-37) L 03/30/20 18:32 ALT 18 U/L (12-78) 03/30/20 18:32 Alkaline Phosphatase 84 U/L (45-117) 03/30/20 18:32 Lipase 84 U/L (73-393) 03/28/20 12:34 Home Medications: Bisoprolol Fumarate/Hctz [Bisoprolol-Hctz 5-6.25 mg Tab] 1 each PO DAILY 03/28/20 Codeine/APAP [Tylenol W/Codeine #3 tab] 1 tab PO Q6HP PRN #30 tab 04/03/20 Levofloxacin [Levaquin] 500 mg PO DAILY #7 tablet 04/03/20 clonazePAM [Klonopin*] 0.5 mg PO TID #30 tab 04/03/20 metroNIDAZOLE [Flagyl] 500 mg PO Q8H #20 tablet 04/03/20 predniSONE [Deltasone] 20 mg PO DAILY #14 tab 01/15/21 New Medications: metroNIDAZOLE [Flagyl] 500 mg PO Q8H #20 tablet clonazePAM [Klonopin*] 0.5 mg PO TID #30 tab Levofloxacin [Levaquin] 500 mg PO DAILY #7 tablet predniSONE [Deltasone] 20 mg PO DAILY #14 tab Codeine/APAP [Tylenol W/Codeine #3 tab] 1 tab PO Q6HP PRN #30 tab PRN Reason: Pain Patient Discharge Instructions: OK TO DC IV AND DC HOME. FOLLOW-UP WITH PRIMARY CARE PROVIDER IN 1-2 WEEKS. FOLLOW-UP WITH SURGERY IN 1-2 WEEKS. FOLLOW-UP WITH ENT IN 1-[address] CALL or TEXT [address] CALDWELL AT [phone] IF ANY QUESTIONS REGARDING HOSPITAL STAY. PLEASE CALL THE FLOOR AT [phone] IF ANY MEDICATION OR NURSING QUESTIONS. Diet: AHA Activity: Fall precautions Followup: Unknown,U [Primary Care Provider] - Time spent managing pt's care (in minutes): 35
--- NOTE | 2020-06-16 13:58 | P.PN ---
Subjective Date of Service: 04/01/20 Primary Care Provider: HAFSA Islas Chief Complaint: Abdominal pain, perforated diverticulitis Subjective: Improving Review of Systems General: Fever (nnn9o), Chills (no) Respiratory: Shortness of Breath (no) Gastrointestinal: Nausea (no), Abdominal Pain Physical Examination - Vital Signs Temperature: 98.6 F Blood Pressure: 113/65 Pulse: 62 Respirations: 16 Pulse Ox (%): 93 - Physical Exam General: Alert, Oriented x3, Cooperative Respiratory: Normal air movement Cardiovascular: No edema Gastrointestinal: No rebound, No guarding, Tenderness (Mild RLQ) Integumentary: No rashes - Studies Medications List Reviewed: Yes Assessment And Plan - Plan advance diet OOB pt explained again diverticular disease control
--- NOTE | 2020-06-16 14:00 | P.PN ---
Subjective Date of Service: 06/16/20 Primary Care Provider: HAFSA Islas Chief Complaint: Abdominal pain, perforated diverticulitis Subjective: Tolerating diet, Ambulating, Improving Review of Systems Cardiovascular: Unremarkable Gastrointestinal: Nausea (nno), Vomiting (no) Physical Examination - Vital Signs Temperature: 98.6 F Blood Pressure: 113/65 Pulse: 62 Respirations: 16 Pulse Ox (%): 93 - Physical Exam General: Alert, In no apparent distress, Oriented x3, Cooperative HEENT: PERRLA Neck: Supple Cardiovascular: No edema, Normal pulses Gastrointestinal: Normal bowel sounds, Soft and benign, No rebound, No guarding Integumentary: No rashes - Studies Medications List Reviewed: Yes Assessment And Plan - Plan diverticular diet OOB f/u with a gastroenterologyst and me once discharge . Pt explained BAR of elective bowel resection. Physician Review Additional Text: Impression: Abdominal pain secondary to acute sigmoid diverticulitis with contained perforation without abscess Hypertension Plan: Abdominal pain secondary to acute sigmoid diverticulitis with contained perforation without abscess: Patient remains NPO. X-ray of abdomen today shows no significant abnormality. Continue IV antibiotic therapy, IV pain medication, and IV fluids. Will discuss with surgery. Anticipate improvement over the next 48-72 hr. Await recommendations from surgery on when to restart oral fluid then diet. Encourage ambulation. Encourage incentive spirometer. I will turn the service over to the hospitalist team tomorrow. I will go plan of care with him. Hypertension: Will provide IV medication as needed Discharge Plan: Home Plan to discharge in: Greater than 2 days
== END 2020-04-05 12:49 | disposition short-term general hospital (02) | DRG 392 ==
LOC: ER 11:59 → ERHOLD 15:48 → 2ND 03-29 16:27
PROVIDERS: ADMIT Family Medicine; ATTEND Hospitalist
DX: K57.20 Diverticulitis of large intestine with perforation and abscess without bleeding (principal); G44.89 Other headache syndrome; I10 Essential (primary) hypertension; Z98.84 Bariatric surgery status; Z90.710 Acquired absence of both cervix and uterus; Z87.891 Personal history of nicotine dependence; Z79.899 Other long term (current) drug therapy; Z79.52 Long term (current) use of systemic steroids; Z20.822 Contact with and (suspected) exposure to COVID-19
CPT/HCPCS: 36415; 70450; 70486; 74019; 74177; 76705; 80048; 80076; 81003; 81015; 83605; 83690; 83735; 84100; 84145; 85025; 87040; 94010; 96361; 96365; 96375; 99285; J1100; J1170; J1650; J2175; J2405; J2543; J2930; J3480; J7030; J7040; J7042; J7512; Q9967; U0003